=== PATIENT | male | born 1945 | race Caucasian/White ===

== ENCOUNTER 2017-07-12 23:19 | Inpatient (IN) | payer MEDICARE, OTHER ==
--- NOTE | 2017-07-12 23:58 | RAD ---
AP VIEW OF THE CHEST: 07/12/17 INDICATION: History of chest pain. COMPARISON: Prior exam dated 03/18/16. FINDINGS: There is stable midline sternotomy changes. Mild cardiomegaly is stable. No confluent air space opaci ty, pleural effusion or pneumothorax is evident. No acute osseous abnormality is noted. IMPRESSION: No acute abnormality. POS: [facility]
[2017-07-13] MEDS ORDERED: Acetaminophen 500 MG TAB ONE (00:08)
[2017-07-13 00:18] LABS: ALT (SGPT) 14 U/L (8-55); AST (SGOT) 13 U/L (5-34); Albumin 3.8 g/dL (3.4-4.8); Alkaline Phosphatase 63 U/L (40-150); Anion Gap 14 mmol/L (10-20); BUN (Urea Nitrogen) 15 mg/dL (8.4-25.7); Bilirubin, Total 0.7 mg/dL (0.2-1.2); Calc. Creatinine Clearance 0 mL/min (70-130); Calcium 8.7 mg/dL (7.8-10.44); Carbon Dioxide 22 mmol/L (23-31); Chloride 103 mmol/L (98-107); Estimated GFR-MDRD 66; Globulin 2.8 g/dL (2.4-3.5); Glucose 129 mg/dL (80-115); Potassium 3.7 mmol/L (3.5-5.1); Protein, Total 6.6 g/dL (5.8-8.1); Sodium 135 mmol/L (136-145)
[2017-07-13 00:22] LABS: CKMB 0.6 ng/mL (0-6.6); Troponin I Less than 0.010 ng/mL (< 0.028)
[2017-07-13 00:24] LABS: Band 12 % (5-11); Hemoglobin 12.7 g/dL (14.0-18.0); Lymphocytes 17 % (21-51); MDiff Complete? YES; Mean Corpuscular HGB CONC 34.1 g/dL (32.0-36.0); Mean Corpuscular Hemoglobin 29.6 pg (27.0-31.0); Mean Corpuscular Volume 86.8 fl (80.0-94.0); Monocytes 1 % (0-10); Neutrophil 70 % (42-75); PLT Morphology Comment Appears Adequate; Platelet Count 233 thou/uL (130-400); RBC Distribution Width 13.1 % (11.5-14.5); Red Blood Cell (RBC) Count 4.27 mill/uL (4.70-6.10); White Blood Cell (WBC) Count 24.3 thou/uL (4.8-10.8)
[2017-07-13] MEDS ORDERED: Clindamycin/D5W 900 mg/50 ml Premix Bag ONE (00:49)
[2017-07-13] MEDS ORDERED: Piperacillin/Tazobactam 4.5 GM VIAL ONE (00:49)
[2017-07-13] MEDS ORDERED: Fentanyl 100 MCG/2 ML VIAL ONE ×2 (01:03→01:29)
[2017-07-13] MEDS ORDERED: Ondansetron ODT 4 MG TAB ONE (01:04)
[2017-07-13 02:56] VITALS: BMI 41.9
[2017-07-13] MEDS ORDERED: Ondansetron HCl/PF 4 MG/2 ML Vial IVP PRN (03:09)
[2017-07-13] MEDS ORDERED: Fentanyl 100 MCG/2 ML VIAL SLOW IVP PRN (03:09)
[2017-07-13] MEDS ORDERED: Ondansetron ODT 4 MG TAB SL PRN (03:09)
[2017-07-13] MEDS ORDERED: Acetaminophen 325 MG TAB PO PRN ×2 (03:09→04:56)
[2017-07-13] MEDS ORDERED: Sodium Chloride 0.9% 1,000 ML IV SCH (03:15)
[2017-07-13] MEDS ORDERED: Prevnar 13-Val Conj/PF 0.5 ML SYRINGE IM ONE (03:15)
[2017-07-13 03:41] LABS: Troponin I 0.011 ng/mL (< 0.028)
[2017-07-13] MEDS ORDERED: VANCOMYCIN/ RENALLY ADJUST ANTIBIOTICS IVPB PRN (04:55)
[2017-07-13] MEDS ORDERED: Nitroglycerin 0.4 MG TAB (25 Tab Bottle) PO PRN (04:56)
[2017-07-13] MEDS ORDERED: Dextrose 50% Abboject 50 ML SYRINGE SLOW IVP PRN (04:56)
[2017-07-13] MEDS ORDERED: Milk Of Magnesia 30 ML UDCUP PO PRN (04:56)
[2017-07-13] MEDS ORDERED: Senokot 8.6 MG TAB PO PRN (04:56)
[2017-07-13] MEDS ORDERED: Calcium Carbonate 500 MG ChewTAB PO PRN (04:56)
[2017-07-13] MEDS ORDERED: Insulin Regular 300 UNITS/3 ML VIAL SC PRN ×2 (04:56)
[2017-07-13] MEDS ORDERED: Dextrose 5% in Water 1,000 ML IV PRN (04:56)
[2017-07-13] MEDS ORDERED: Labetalol HCl 100 MG/20 ML VIAL SLOW IVP PRN (04:59)
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
[2017-07-13] MEDS: NS 0.9% w/ 20 MEQ KCL 1,000 ML IV SCH ×2 (06:02→16:39)
[2017-07-13 06:13] LABS: Troponin I 0.022 ng/mL (< 0.028)
[2017-07-13] MEDS ORDERED: Piperacillin/Tazobactam 4.5 GM in Sodium Chloride 0.9% 100 ML IVPB SCH (08:00)
[2017-07-13] MEDS: cefTRIAXone\\ROCEPHIN 2 GM in Sodium Chloride 0.9% 100 ML IVPB SCH (08:45)
[2017-07-13] MEDS: Gabapentin 300 MG CAP PO SCH ×3 (08:45→20:11)
[2017-07-13] MEDS: Docusate 100 MG CAP PO SCH ×2 (08:45→20:11)
[2017-07-13] MEDS: Carvedilol 3.125 MG TAB PO SCH ×2 (08:45→16:41)
[2017-07-13] MEDS: Enoxaparin Sodium 40 MG/0.4 ML SYRINGE SC SCH (08:45)
[2017-07-13] MEDS: Famotidine 20 MG TAB PO SCH ×2 (08:45→20:11)
[2017-07-13] MEDS: Aspirin 81 mg Enteric Coated Tablet PO SCH (08:45)
[2017-07-13] MEDS ORDERED: Aspirin 325 MG TAB PO SCH (09:00)
[2017-07-13] MEDS ORDERED: Clindamycin/D5W 900 MG in Premix Bag 1 BAG IVPB SCH (09:00)
[2017-07-13 10:19] LABS: #Eosinphils 0.1 thou/uL (0.0-0.7); #Lymphocytes 2.8 thou/uL (1.20-3.40); #Monocytes 1.3 thou/uL (0.11-0.59); #Neutrophils 10.1 thou/uL (1.40-6.50); %Basophils 0.3 % (0.0-1.0); %Eosinophils 0.5 % (0.0-10.0); %Lymphocytes 19.2 % (21.0-51.0); %Monocytes 9.3 % (0.0-10.0); %Neutrophils 70.7 % (42.0-75.0); Hemoglobin 11.8 g/dL (14.0-18.0); Mean Corpuscular HGB CONC 33.3 g/dL (32.0-36.0); Mean Corpuscular Hemoglobin 29.4 pg (27.0-31.0); Mean Corpuscular Volume 88.3 fl (80.0-94.0); Mean Platelet Volume 6.6 fL (7.4-10.4); Platelet Count 178 thou/uL (130-400); RBC Distribution Width 13.1 % (11.5-14.5); Red Blood Cell (RBC) Count 4.02 mill/uL (4.70-6.10); White Blood Cell (WBC) Count 14.3 thou/uL (4.8-10.8)
--- NOTE | 2017-07-13 14:09 | ULT ---
LEFT LOWER EXTREMITY VENOUS DOPPLER ULTRASOUND: DATE: 07/13/17. COMPARISON: None. HISTORY: Chest pain. Left lower extremity edema, redness, warmth, and swelling. TECHNIQUE: Multiplanar, lee scale sonographic imaging of the venous structures of the left lower extremity obta ined with color flow and spectral analysis. FINDINGS: Left common femoral vein, greater saphenous vein, profunda femoral vein, femoral vein, popliteal vein , and posterior tibial vein appear patent. No evidence for deep venous thrombosis of the left lower extremity. Normal blood flow, augmentation, and compression noted within the deep venous system on the left. IMPRESSION: No evidence for deep venous thrombosis of the left lower extremity. POS: [facility]
[2017-07-13] MEDS: Vancomycin HCl 1.5 GM in Sodium Chloride 0.9% 250 ML 300 ML IVPB SCH (16:34)
[2017-07-13] MEDS: Atorvastatin Calcium 20 MG TAB PO SCH (20:11)
[2017-07-14] MEDS: Vancomycin HCl 1.5 GM in Sodium Chloride 0.9% 250 ML 300 ML IVPB SCH (01:40)
[2017-07-14] MEDS: NS 0.9% w/ 20 MEQ KCL 1,000 ML IV SCH ×2 (01:46→14:49)
[2017-07-14 05:46] LABS: #Basophils 0.1 thou/uL (0.0-0.2); #Eosinphils 0.3 thou/uL (0.0-0.7); #Lymphocytes 3.1 thou/uL (1.20-3.40); #Monocytes 1.2 thou/uL (0.11-0.59); #Neutrophils 5.8 thou/uL (1.40-6.50); %Basophils 0.8 % (0.0-1.0); %Eosinophils 2.5 % (0.0-10.0); %Lymphocytes 29.5 % (21.0-51.0); %Monocytes 11.5 % (0.0-10.0); %Neutrophils 55.7 % (42.0-75.0); Hemoglobin 12.5 g/dL (14.0-18.0); Mean Corpuscular HGB CONC 33.6 g/dL (32.0-36.0); Mean Corpuscular Volume 89.3 fl (80.0-94.0); Mean Platelet Volume 7.3 fL (7.4-10.4); Platelet Count 200 thou/uL (130-400); RBC Distribution Width 13.2 % (11.5-14.5); Red Blood Cell (RBC) Count 4.16 mill/uL (4.70-6.10); White Blood Cell (WBC) Count 10.4 thou/uL (4.8-10.8)
[2017-07-14 06:04] LABS: Albumin 3.6 g/dL (3.4-4.8); Anion Gap 10 mmol/L (10-20); BUN (Urea Nitrogen) 10 mg/dL (8.4-25.7); BUN/Creatinine Ratio 12.05; Calc. Creatinine Clearance 150 mL/min (70-130); Calcium 8.8 mg/dL (7.8-10.44); Carbon Dioxide 22 mmol/L (23-31); Chloride 111 mmol/L (98-107); Estimated GFR-MDRD Greater than 90; Glucose 127 mg/dL (80-115); Phosphorus 2.5 mg/dL (2.3-4.7); Potassium 4.3 mmol/L (3.5-5.1); Sodium 139 mmol/L (136-145)
[2017-07-14] MEDS: Gabapentin 300 MG CAP PO SCH ×3 (08:10→20:41)
[2017-07-14] MEDS: Carvedilol 3.125 MG TAB PO SCH ×2 (08:10→17:18)
--- NOTE | 2017-07-14 13:42 | PDOC.PN ---
- Subjective Encounter Start Date: 07/14/17 Encounter Start Time: 09:00 Patient is seen today, alert and oriented. he wants to go home tomorrow. He still has severe cellulitis which is improving with IV antibiotivc. Will d/c vancomycin. - Objective Resuscitation Status: Resuscitation Status FULL:Full Resuscitation MAR Reviewed: Yes Vital Signs & Weight: Vital Signs (12 hours) Temp Pulse Resp BP BP Pulse Ox 07/14/17 08:08 97.8 F 63 16 154/66 H 97 07/14/17 08:00 97.8 F 63 16 97 07/14/17 04:56 96 07/14/17 04:00 97.9 F 73 13 167/70 H 98 Weight Weight 283 lb 1.6 oz I&O: 07/13/17 07/14/17 07/15/17 06:59 06:59 06:59 Intake Total 1999 2230 Output Total 800 2100 Balance 1200 130 Result Diagrams: 07/14/17 05:01 07/14/17 05:02 Additional Labs: Accuchecks 07/14/17 07/13/17 07/13/17 06:26 20:59 16:57 POC Glucose 137 H 142 H 111 H Radiology Reviewed by me: Yes Phys Exam - Physical Examination HEENT: PERRLA, moist MMs Neck: no nodes, no JVD Respiratory: no wheezing, no rales Cardiovascular: RRR, no significant murmur Gastrointestinal: soft, non-tender left leg Erythema improving. Neurological: non-focal, normal sensation Lymphatic: no nodes Psychiatric: normal affect, A&O x 3 Skin: no rash, normal turgor Dx/Plan (1) Sepsis affecting skin Code(s): A41.9 - SEPSIS, UNSPECIFIED ORGANISM Status: Acute Comment: Continue on Rocephin, Will d/c vancomycin. (2) Obstructive sleep apnea on CPAP Code(s): G47.33 - OBSTRUCTIVE SLEEP APNEA (ADULT) (PEDIATRIC); Z99.89 - DEPENDENCE ON OTHER ENABLING MACHINES AND DEVICES Status: Acute Comment: Continue on CPAP, no worseing SOB or excessive sleepiness noted. (3) Morbid obesity Code(s): E66.01 - MORBID (SEVERE) OBESITY DUE TO EXCESS CALORIES Status: Acute (4) Chest pain Code(s): R07.9 - CHEST PAIN, UNSPECIFIED Status: Acute Comment: Waiting on Nuclear stress test today. (5) DM2 (diabetes mellitus, type 2) Status: Acute Comment: well controlled on SSI and Home emds. (6) HTN (hypertension) Code(s): I10 - ESSENTIAL (PRIMARY) HYPERTENSION Status: Acute Comment: Well controlled on Home meds, Will continue To Monitor. - Plan cont current plan of care, continue antibiotics, PT/OT, social media senior associate, respiratory therapy, incentive spirometry, DVT proph w/lovenox * . - Discharge Day Encounter end time: 09:35 Review of Systems - Review of Systems Constitutional: negative: fever, chills, sweats, weakness, malaise, other Eyes: negative: Pain, Vision Change, Conjunctivae Inflammation, Eyelid Inflammation, Redness, Other ENT: negative: Ear Pain, Ear Discharge, Nose Pain, Nose Discharge, Nose Congestion, Mouth Pain, Mouth Swelling, Throat Pain, Throat Swelling, Other Respiratory: negative: Cough, Dry, Shortness of Breath, Hemoptysis, SOB with Excertion, Pleuritic Pain, Sputum, Wheezing Cardiovascular: negative: chest pain, palpitations, orthopnea, paroxysmal nocturnal dyspnea, edema, light headedness, other Musculoskeletal: negative: Neck Pain, Shoulder Pain, Arm Pain, Back Pain, Hand Pain, Leg Pain, Foot Pain, Other - Medications/Allergies Allergies/Adverse Reactions: Allergies Allergy/AdvReac Type Severity Reaction Status Date / Time Iodine and Iodide Containing Allergy Intermediate Verified 07/13/17 02:37 Produc Medications: Current Medications Acetaminophen (Tylenol) 650 mg PO Q4H PRN PRN Reason: Headache/Fever or Pain Aspirin (Ecotrin) 81 mg PO DAILY [facility] Last Admin: 07/13/17 08:45 Dose: 81 mg Atorvastatin Calcium (Lipitor) 20 mg PO HS [facility] Last Admin: 07/13/17 20:11 Dose: 20 mg Calcium Carbonate (Tums) 1,000 mg PO Q4H PRN PRN Reason: Heartburn or Indigestion Carvedilol (Coreg) 3.125 mg PO BID-[facility] Last Admin: 07/13/17 16:41 Dose: 3.125 mg Dextrose/Water (Dextrose 50%) 25 gm SLOW IVP PRN PRN PRN Reason: Hypoglycemia Docusate Sodium (Colace) 100 mg PO BID [facility] Last Admin: 07/13/17 20:11 Dose: 100 mg Enoxaparin Sodium (Lovenox) 40 mg SC 0900 [facility] Last Admin: 07/13/17 08:45 Dose: 40 mg Famotidine (Pepcid) 20 mg PO BID [facility] Last Admin: 07/13/17 20:11 Dose: 20 mg Gabapentin (Neurontin) 300 mg PO TID [facility] Last Admin: 07/13/17 20:11 Dose: 300 mg Glucagon (Glucagon) 1 mg IM PRN PRN PRN Reason: Hypoglycemia Hydralazine HCl (Apresoline) 10 mg SLOW IVP Q4H PRN PRN Reason: SBP Greater Than 180 Ceftriaxone Sodium 2 gm/ (Sodium Chloride) 100 mls @ 200 mls/hr IVPB DAILY [facility] Last Admin: 07/13/17 08:45 Dose: 100 mls Dextrose/Water (D5w) 1,000 mls @ 0 mls/hr IV .Q0M PRN; As Directed PRN Reason: Hypoglycemia Potassium Chloride/Sodium Chloride (Ns 0.9% W/ 20 Meq Kcl) 1,000 mls @ 100 mls/ hr IV .Q10H [facility] Last Admin: 07/14/17 01:46 Dose: 1,000 mls Insulin Human Regular (Humulin R) 0 units SC .MILD SLIDING SCALE PRN PRN Reason: Mild Correctional Scale Insulin Human Regular (Humulin R) 0 units SC .BEDTIME SLIDING SC PRN PRN Reason: Bedtime Correctional Scale Labetalol HCl (Normodyne) 10 mg SLOW IVP Q4H PRN PRN Reason: Systolic BP > 180 Magnesium Hydroxide (Milk Of Magnesium) 30 ml PO DAILYPRN PRN PRN Reason: Constipation Miscellaneous Medication (Pharmacy To Dose) 1 each IVPB PRN PRN PRN Reason: Pharmacy to dose Nitroglycerin (Nitrostat) 0.4 mg PO Q5MIN PRN PRN Reason: Chest Pain Senna (Senokot) 2 tab PO HSPRN PRN PRN Reason: Constipation Sodium Chloride (Flush - Normal Saline) 10 ml IVF Q12HR [facility] Last Admin: 07/13/17 20:11 Dose: 10 ml Sodium Chloride (Flush - Normal Saline) 10 ml IVF PRN PRN PRN Reason: Saline Flush
[2017-07-14] MEDS: Enoxaparin Sodium 40 MG/0.4 ML SYRINGE SC SCH (14:48)
[2017-07-14] MEDS: cefTRIAXone\\ROCEPHIN 2 GM in Sodium Chloride 0.9% 100 ML IVPB SCH (14:48)
[2017-07-14] MEDS: Docusate 100 MG CAP PO SCH ×2 (14:48→20:41)
[2017-07-14] MEDS: Aspirin 81 mg Enteric Coated Tablet PO SCH (14:48)
[2017-07-14] MEDS: Famotidine 20 MG TAB PO SCH ×2 (14:49→20:41)
[2017-07-14] MEDS: hydrALAZINE 20 MG/ML VIAL SLOW IVP PRN (18:49)
[2017-07-14] MEDS: Atorvastatin Calcium 20 MG TAB PO SCH (20:41)
[2017-07-15] MEDS: NS 0.9% w/ 20 MEQ KCL 1,000 ML IV SCH (04:26)
[2017-07-15] MEDS: Carvedilol 3.125 MG TAB PO SCH (09:07)
[2017-07-15] MEDS: Docusate 100 MG CAP PO SCH (09:08)
[2017-07-15] MEDS: Aspirin 81 mg Enteric Coated Tablet PO SCH (09:08)
[2017-07-15] MEDS: Famotidine 20 MG TAB PO SCH (09:08)
[2017-07-15] MEDS: Enoxaparin Sodium 40 MG/0.4 ML SYRINGE SC SCH (09:08)
[2017-07-15] MEDS: Gabapentin 300 MG CAP PO SCH ×2 (09:08→14:39)
[2017-07-15] MEDS: cefTRIAXone\\ROCEPHIN 2 GM in Sodium Chloride 0.9% 100 ML IVPB SCH (09:08)
[2017-07-15] MEDS: hydrALAZINE 20 MG/ML VIAL SLOW IVP PRN ×2 (09:09→15:11)
--- NOTE | 2017-07-15 12:44 | NM ---
NUCLEAR MEDICINE CARDIAC STRESS TEST WITH EJECTION FRACTION: HISTORY: CABG, diabetes, hypertension, hyperlipidemia, peripheral vascular disease. COMPARISON: 03/20/16. TECHNIQUE: Stress and rest was performed after the intravenous administration of 31 and 32 mCi technetium-99m se stamibi. FINDINGS: No scar or ischemia. Adequate left ventricular uptake of radiotracer. Normal wall motion. Ejection fr action calculated at 64%. IMPRESSION: Normal study. POS: [facility]
[2017-07-15 14:44] VITALS: TEMP 97.6
--- NOTE | 2017-07-15 16:10 | DIS ---
DATE OF ADMISSION: 07/13/2017 DATE OF DISCHARGE: 07/15/2017 ADMITTING DIAGNOSIS: Sepsis secondary to cellulitis. DISCHARGE DIAGNOSIS: Sepsis secondary to cellulitis. SECONDARY DIAGNOSES: 1. Acute chest pain. 2. Hypertension. 3. Hyperlipidemia. 4. Morbid obesity. 5. Type 2 diabetes mellitus. HISTORY OF PRESENT ILLNESS AND HOSPITAL COURSE: In brief, this is a 71-year-old morbidly obese white male who presented to the hospital complaining of left lower extremity swelling and pain, and erythe ma. The patient was diagnosed with cellulitis and was noted to have elevated white count of 24,000. Patient was acutely septic. He was started on Rocephin and vancomycin. After 2 days of vancomycin and Rocephin, the patient's white count started coming down and patient had a chest pain prior to thi s admission, so this was being evaluated by a nuclear stress test. Patient had a nuclear stress test which did not show any evidence of coronary artery disease at this time. The patient's nuclear stre ss test was negative and also had an ultrasound of the left lower extremity to rule out a DVT which w as also negative. The patient was doing fine and was able to walk without any pain and did not have any repeat chest pains. The patient was discharged home in stable condition. PHYSICAL EXAMINATION: VITAL SIGNS: Blood pressures are 148/66, heart rate is 63, respiratory is 18, saturation 98%. GENERAL: The patient is moderately built and moderately nourished, does not appear to be in acute di stress at this time, alert, oriented x3. HEENT: Atraumatic. Normocephalic. PERRLA. Extraocular movements were intact. Oral mucosa is pink and moist. CARDIOVASCULAR: S1, S2 normal. No murmurs, rubs or gallops. LUNGS: Bilateral air entry was equal. No wheezing, no crackles. ABDOMEN: Soft, nontender. No guarding or rebound tenderness. Bowel sounds normal. MUSCULOSKELETAL: No calf tenderness, no pedal edema. No joint tenderness, no joint swelling. SKIN: No cyanosis, no edema, no rash, no pallor. CENTRAL NERVOUS SYSTEM: Cranial examination II-XII intact. No focal deficits are noted at this time . DISCHARGE MEDICATIONS: 1. Acarbose 100 mg p.o. b.i.d. 2. Alfuzosin 10 mg p.o. daily. 3. Cyanocobalamin. 4. Ergocalciferol 50,000 units every 7 days. 5. Metformin 1000 mg p.o. b.i.d. 6. Ringle 3. 7. Aspirin 81 mg p.o. daily. 8. Atorvastatin. 9. Coreg 12.5 mg p.o. b.i.d. 10. Lasix 20 mg p.o. daily. 11. Gabapentin 300 mg p.o. t.i.d. 12. Glimepiride 2 mg daily. 13. Lisinopril 20 mg p.o. daily. 14. The new medication and discharge is Keflex 500 mg p.o. b.i.d. Continue for 7 more days. DISCHARGE INSTRUCTIONS: Continue activity as tolerated. Advised to follow up with primary care phys ician in 1-2 weeks. Advised to return to the ER if the patient develops further chest pains. Advised to continue with IV antibiotics or p.o. antibiotics. Advised to increase in physical activity and lose weight. Diet: Cardiac and diabetic diet. Activity: As tolerated. I spent thirty-five minutes on this patient at the day of discharge.
[2017-07-15 16:16] VITALS: BP 148/78
[2017-07-15] MEDS ORDERED: Carvedilol 6.25 MG TAB PO SCH (17:00)
[2017-07-16] MEDS ORDERED: Glimepiride 2 MG TAB PO SCH (08:00)
[2017-07-16] MEDS ORDERED: Furosemide 20 MG TAB PO SCH (09:00)
[2017-07-16] MEDS ORDERED: Lisinopril 20 MG TAB PO SCH (09:00)
== END 2017-07-15 16:05 | disposition home or self-care (01) | DRG 872 ==
LOC: ERS 23:19 → 2NO 07-13 01:19
PROVIDERS: ADMIT Internal Medicine; ATTEND Internal Medicine
DX: A41.9 Sepsis, unspecified organism (principal); L03.116 Cellulitis of left lower limb; E11.9 Type 2 diabetes mellitus without complications; I25.10 Atherosclerotic heart disease of native coronary artery without angina pectoris; Z95.1 Presence of aortocoronary bypass graft; E78.5 Hyperlipidemia, unspecified; I10 Essential (primary) hypertension; E66.09 Other obesity due to excess calories; G47.33 Obstructive sleep apnea (adult) (pediatric); Z91.19 Patient's noncompliance with other medical treatment and regimen; I49.3 Ventricular premature depolarization; Z87.891 Personal history of nicotine dependence; N40.0 Benign prostatic hyperplasia without lower urinary tract symptoms; R07.9 Chest pain, unspecified; Z91.048 Other nonmedicinal substance allergy status; Z79.899 Other long term (current) drug therapy; Z79.84 Long term (current) use of oral hypoglycemic drugs; Z79.82 Long term (current) use of aspirin
CPT/HCPCS: 36415; 36416; 71045; 78452; 80053; 80069; 82553; 83605; 84145; 84484; 85025; 87040; 93005; 93017; 94760; 96361; 96365; 96375; A4216; A9500; J0153; J0360; J0696; J1650; J2543; J3010; J3370; J3490; J7050; Q0162